=== PATIENT | female | born 1985 | race Two or more races ===

== ENCOUNTER → 2020-11-07 | Outpatient (CLI) | payer OTHER, BC ==
[2020-11-07 09:07] LABS: BASOPHILS % (AUTO) 1 % (0-1); EOSINOPHILS % (AUTO) 3 % (1-7); LYMPHOCYTES % (AUTO) 29 % (22-44); MEAN CORPUSCULAR HEMOGLOBIN 30.4 pg (27.0-34.8); MEAN CORPUSCULAR HGB CONC 34.7 g/dL (32.4-35.8); MEAN PLATELET VOLUME 8.9 fL (7.4-10.4); MONOCYTES % (AUTO) 7 % (2-9); NEUTROPHILS % (AUTO) 60 % (42-75); PLATELET COUNT 291 x10^3/uL (130-400); RED BLOOD COUNT 5.17 x10^6/uL (3.82-5.3); RED CELL DISTRIBUTION WIDTH 13.2 % (9.6-15.2)
[2020-11-07 09:18] LABS: ALBUMIN 4.3 g/dL (3.4-5.0); CALCIUM 9.4 mg/dL (8.5-10.1); CHOLESTEROL, TOTAL 171 mg/dL (140-239); CREATININE 0.68 mg/dL (0.55-1.02); TOTAL IRON BINDING CAPACITY 344 mcg/dL (250-450); TRIGLYCERIDES 128 mg/dL (50-200); VLDL CHOLESTEROL 26 mg/dL (0-25)
[2020-11-07 09:41] LABS: ANION GAP 4 mmol/L (5-15); CHLORIDE 109 mmol/L (98-107)
[2020-11-07 09:45] LABS: % IRON SATURATION 28 % (20-55); ALANINE AMINOTRANSFERASE 44 U/L (12-78); ALKALINE PHOSPHATASE 71 U/L (45-117); BILIRUBIN,TOTAL 0.6 mg/dL (0.2-1.0); HDL CHOL % 20 % (28-40); HDL CHOLESTEROL (DIRECT) 34 mg/dL (40-60); IRON LEVEL 98 mcg/dL (50-170); LDL CHOLESTEROL,CALCULATED 111 mg/dL (54-169); LDL/HDL RATIO 3.3 (0.5-3.0); PREALBUMIN 22.7 mg/dL (20.0-40.0); TOTAL PROTEIN 7.9 g/dL (6.4-8.2); TRANSFERRIN 266 mg/dL (200-360)
== END | disposition home or self-care (01) ==
LOC: STAR 08:21
PROVIDERS: ATTEND Student in an Organized Health Care Education/Training Program
DX: Z01.818 Encounter for other preprocedural examination (principal); E66.01 Morbid (severe) obesity due to excess calories; R94.31 Abnormal electrocardiogram [ECG] [EKG]
CPT/HCPCS: 36415; 71046; 80053; 80061; 82306; 82607; 82728; 83540; 83550; 83970; 84134; 84425; 84466; 85025; 93005

== ENCOUNTER 2020-11-20 06:01 | Inpatient (IN) | payer OTHER, BC ==
[2020-11-07 09:04] VITALS: BP 130/91
[~2020-11-20] VITALS: Ht 170.2 cm; Wt 128.6 kg
[2020-11-20] MEDS ORDERED: CHLORHEXIDINE 15 ML UDC PO ONE (07:00)
[2020-11-20] MEDS ORDERED: LACTATED RINGERS 1,000 ML IV SCH (07:00)
[2020-11-20] MEDS ORDERED: EPINEPHRINE 1 MG/ML, 1ML ONE (07:10)
[2020-11-20] MEDS ORDERED: BUPIVACAINE/PF 0.5% ONE (07:10)
[2020-11-20] MEDS ORDERED: MIDAZOLAM 1 MG/ML, 2ML ONE (07:12)
[2020-11-20] MEDS ORDERED: FENTANYL PF 250 MCG/5ML ONE (07:13)
[2020-11-20] MEDS ORDERED: DEXAMETHASONE 4 MG/ML, 1ML ONE (07:22)
[2020-11-20] MEDS ORDERED: OMEP-110 PO (07:32)
[2020-11-20] MEDS ORDERED: OXYC5SOL8 PO (07:32)
[2020-11-20] MEDS ORDERED: ACET325T26 PO (07:32)
[2020-11-20] MEDS ORDERED: POLY17PO5 PO (07:32)
[2020-11-20] MEDS ORDERED: ONDA4TAB7 PO (07:32)
[2020-11-20] MEDS ORDERED: CELE100C PO (07:32)
[2020-11-20] MEDS ORDERED: ROCURONIUM 10MG/ML,5ML ONE (07:47)
[2020-11-20] MEDS ORDERED: SUCCINYLCHOLINE 20 MG/ML, 10ML ONE (07:47)
[2020-11-20] MEDS ORDERED: LIDOCAINE-MPF 2% ,5ML ONE (07:47)
[2020-11-20] MEDS ORDERED: ONDANSETRON 2MG/ML, 2ML ONE (07:47)
[2020-11-20] MEDS ORDERED: CEFOTETAN 2 GM ONE (07:47)
[2020-11-20] MEDS ORDERED: GLYCOPYRROLATE 0.2MG/1ML, 5ML ONE (07:47)
[2020-11-20] MEDS ORDERED: BUPIVACAINE/PF-EPI 0.5% 1:200K INFIL ONE (07:47)
[2020-11-20] MEDS ORDERED: NEOSTIGMINE 1 MG/ML, 10ML ONE (07:47)
[2020-11-20] MEDS ORDERED: PROPOFOL 10 MG/ML, 20ML ONE (07:47)
[2020-11-20] MEDS ORDERED: ACETAMINOPHEN 325 MG TABLET PO PRN (08:00)
[2020-11-20] MEDS ORDERED: PROMETHAZINE 25 MG/ML, 1ML IVPush PRN (08:00)
[2020-11-20] MEDS ORDERED: ALBUTEROL SULFATE 2.5 MG/3 ML NPPB PRN (08:00)
[2020-11-20] MEDS ORDERED: FENTANYL PF 100 MCG/2ML IV PRN (08:00)
[2020-11-20] MEDS ORDERED: MEPERIDINE/PF 25MG/0.5ML IVPush PRN (08:00)
[2020-11-20] MEDS ORDERED: OXYcodone 5 MG/5 ML ORAL.SOL UDC PO PRN ×2 (08:00→18:00)
[2020-11-20] MEDS ORDERED: LABETALOL 5MG/ML, 20ML IV PRN (08:00)
[2020-11-20] MEDS ORDERED: ACETAMINOPHEN 100 ML IVPB ONE (09:30)
[2020-11-20] MEDS ORDERED: MEPERIDINE/PF 25MG/ML,1ML ONE (10:16)
[2020-11-20] MEDS: HYDROmorphone 1 MG/ML, 1ML INJ IVPush PRN ×2 (10:40→11:15)
[2020-11-20] MEDS ORDERED: HYDROmorphone 1 MG/ML, 1ML INJ IV PRN (12:30)
[2020-11-20] MEDS ORDERED: KETOROLAC 30 MG/1 ML ONE (14:29)
[2020-11-20] MEDS ORDERED: ACETAMINOPHEN 100 ML IV SCH (15:30)
[2020-11-20] MEDS ORDERED: DIPHENHYDRAMINE 25 MG CAPSULE PO PRN (18:00)
[2020-11-20] MEDS ORDERED: ONDANSETRON 2MG/ML, 2ML IV PRN (18:00)
[2020-11-20] MEDS ORDERED: ENALAPRILAT 1.25 MG/ML, 2ML IV PRN (18:00)
[2020-11-20] MEDS ORDERED: PHENOL THROAT SPRAY BOTTLE MM PRN (18:00)
[2020-11-20] MEDS ORDERED: LACTATED RINGERS 500 ML IVBOLUS PRN (18:00)
[2020-11-20] MEDS ORDERED: DIPHENHYDRAMINE 50 MG/ML, 1ML IV PRN (18:00)
[2020-11-20] MEDS: ENOXAPARIN 30 MG/0.3 ML SQ SCH (18:05)
[2020-11-20] MEDS: POTASSIUM CHLORIDE 20 MEQ in LACTATED RINGERS 1,000 ML IV SCH (19:36)
[2020-11-20] MEDS: KETOROLAC 30 MG/1 ML IVPush SCH (19:40)
[2020-11-20 20:22] VITALS: BP 125/84
[2020-11-20] MEDS: ACETAMINOPHEN 100 ML IV SCH (21:47)
[2020-11-21 00:14] VITALS: BP 120/76
[2020-11-21] MEDS: KETOROLAC 30 MG/1 ML IVPush SCH ×2 (01:43→07:50)
[2020-11-21] MEDS: ACETAMINOPHEN 100 ML IV SCH ×2 (03:23→09:04)
[2020-11-21 04:18] VITALS: BP 116/81
[2020-11-21 05:15] LABS: BASOPHILS % (AUTO) 0 % (0-1); EOSINOPHILS % (AUTO) 1 % (1-7); LYMPHOCYTES % (AUTO) 19 % (22-44); MEAN CORPUSCULAR HEMOGLOBIN 29.2 pg (27.0-34.8); MEAN CORPUSCULAR HGB CONC 33.5 g/dL (32.4-35.8); MEAN PLATELET VOLUME 10.2 fL (7.4-10.4); MONOCYTES % (AUTO) 7 % (2-9); NEUTROPHILS % (AUTO) 73 % (42-75); PLATELET COUNT 262 x10^3/uL (130-400); RED BLOOD COUNT 4.84 x10^6/uL (3.82-5.3); RED CELL DISTRIBUTION WIDTH 13.3 % (9.6-15.2)
[2020-11-21 05:27] LABS: ALBUMIN 3.6 g/dL (3.4-5.0); ANION GAP 14 mmol/L (5-15); CALCIUM 8.8 mg/dL (8.5-10.1); CHLORIDE 107 mmol/L (98-107)
[2020-11-21 05:32] LABS: ALANINE AMINOTRANSFERASE 65 U/L (12-78); ALKALINE PHOSPHATASE 59 U/L (45-117); BILIRUBIN,TOTAL 0.4 mg/dL (0.2-1.0); CREATININE 0.46 mg/dL (0.55-1.02); TOTAL PROTEIN 6.8 g/dL (6.4-8.2)
[2020-11-21 06:57] VITALS: BP_SYST 119; BP_SYST 149; BP_DIAS 78; BP_DIAS 92
[2020-11-21] MEDS: POTASSIUM CHLORIDE 20 MEQ in LACTATED RINGERS 1,000 ML IV SCH (07:30)
[2020-11-21] MEDS: ENOXAPARIN 30 MG/0.3 ML SQ SCH (09:00)
[2020-11-21 12:50] VITALS: BP 132/73
== END 2020-11-21 10:58 | disposition home or self-care (01) | DRG 619 ==
LOC: ORIP 06:01 → 4NE 17:14
PROVIDERS: ADMIT Student in an Organized Health Care Education/Training Program; ATTEND Student in an Organized Health Care Education/Training Program
PROC: 0BQT4ZZ Repair Diaphragm, Percutaneous Endoscopic Approach (ICD-10-PCS; 2020-11-20)
PROC: 0DB64Z3 Excision of Stomach, Percutaneous Endoscopic Approach, Vertical (ICD-10-PCS; principal; 2020-11-20 07:30)
DX: E66.01 Morbid (severe) obesity due to excess calories (principal); E43 Unspecified severe protein-calorie malnutrition; G47.30 Sleep apnea, unspecified; E28.2 Polycystic ovarian syndrome; K44.9 Diaphragmatic hernia without obstruction or gangrene; Z68.41 Body mass index [BMI] 40.0-44.9, adult
CPT/HCPCS: 36415; J3490; S0020; 80053; 81025; 85025; 86850; 86900; 88305; G0378; J0131; J0171; J1100; J1170; J1650; J1885; J2175; J2250; J2405; J2704; J2710; J3010; J3480; J0330; J7120